=== PATIENT | female | born 2000 | race African-American/Black ===

== ENCOUNTER 2024-09-27 10:57 | Emergency (ER) | payer MEDICAID, SELFPAY ==
--- NOTE | ~2024-09-27 | XR_ITS ---
EXAMINATION: XR chest 2V DATE: 09/27/2024 11:46 INDICATION: 2 weeks of cough. TECHNIQUE: PA and lateral views of the chest were obtained. COMPARISON: None FINDINGS: The lungs are clear with no focal airspace opacities, pulmonary edema, pleural effusion or pneumothor ax. The cardiomediastinal silhouette is normal. Visualized bones and soft tissues are unremarkable. IMPRESSION: 1. No acute cardiopulmonary disease. Reviewed, dictated and finalized at location B.
[2024-09-27 11:06] VITALS: BP 108/67; PULSE 79; RESP 18; TEMP 36.9; O2SAT 99
--- NOTE | 2024-09-27 11:29 | ED.URI ---
HPI - URI/Sore Throat General Chief Complaint: Upper Respiratory Infection Stated Complaint: COUGH/CONGESTION/CHEST PAIN Time Seen by Provider: 09/27/24 11:16 Source: patient and RN notes reviewed Mode of arrival: ambulatory Limitations: no limitations History of Present Illness HPI Narrative: Patient presents today complaining of a 2 week history of dry cough. This morning when she woke up she had some mild chest tightness that has since improved. She denies any associated symptoms since onset of the cough to include fever, congestion, rhinorrhea, sore throat, postnasal drip, shortness of breath. She has tried some beut-bax-cmocqxt cough medicine without relief. No history of asthma. Patient believe her cough may be associated with an irritant in her apartment, however, she cannot be more specific. States she does not cough much when out of the apartment. States she does have seasonal allergies for which she typically takes Zyrtec, but has not started it yet this year. Related Data Allergies Allergy/AdvReac Type Severity Reaction Status Date / Time No Known Allergies Allergy Verified 09/27/24 11:14 [facility] Comments At time of signature, I have reviewed and agree with nursing past medical, surgical, social and family history unless otherwise noted. Please see nursing chart for further information. There is no relevant family history pertinent to the presenting complaint Exam Narrative: GENERAL: Well-appearing, well-nourished, and in no acute distress. HEAD: Normocephalic, atraumatic. EYES: EOMI. No redness or drainage. Conjunctivae normal. ENT: Mucous membranes pink and moist. Nares clear. No rhinorrhea. TMs normal bilaterally. Throat normal. Uvula midline. NECK: Normal AROM. Supple. No lymphadenopathy. CHEST: No respiratory distress. Clear to auscultation. HEART: Regular rate and rhythm. No murmur appreciated. EXTREMITIES: Normal range of motion. No edema. SKIN: Warm, dry, no rash. Capillary refill normal. Normal skin turgor. NEURO: No focal deficits. Alert and oriented x3. Gait steady. PSYCH: Normal affect. No signs of depression or anxiety. Course Course Level of Care: Express Care Visit Vital Signs Vital signs: Vital Signs Temperature 98.4 F 09/27/24 11:06 Pulse Rate 79 09/27/24 11:06 Respiratory Rate 18 09/27/24 11:06 Blood Pressure 108/67 09/27/24 11:06 Pulse Oximetry 99 09/27/24 11:06 Oxygen Delivery Room Air 09/27/24 11:06 Temperature 98.4 F 09/27/24 11:06 Pulse Rate 79 09/27/24 11:06 Respiratory Rate 18 09/27/24 11:06 Blood Pressure 108/67 09/27/24 11:06 Pulse Oximetry 99 09/27/24 11:06 Oxygen Delivery Room Air 09/27/24 11:06 Reviewed MDM - URI/Sore Throat MDM Narrative Medical decision making narrative: Patient is 23-year-old female [place] town [place] to [employer]. She has a dry cough for 2 weeks without any associated symptoms except for some mild chest tightness experienced this morning that seems to be improving since onset. She has tried some qkef-odt-eiagcbr cough medicine without relief. Chest x-ray negative today. During her visit here today, patient has not coughed so this has not been evaluated. Patient states her cough is much more frequent within her home and believe she may be coughing due to an irritant there. Denies history of asthma. Patient will be given a burst of prednisone and some Tessalon Perles to help with her symptoms. Recommend PCP follow-up if symptoms do not improve or if the improvement medication then worsened again. Patient agrees with plan. Anticipatory guidance given. Differential Diagnosis Differential diagnosis: Likely upper respiratory infection, viral infection, bronchitis and other (Pneumonia, reactive airway) Imaging Data Radiologist's impression: ITS Impressions Chest X-Ray 09/27/24 11:49 IMPRESSION: 1. No acute cardiopulmonary disease. Critical Care Time Critical Care Time Critical Care Time: No Discharge Plan Discharge Clinical Impression: Cough Qualifiers: Cough type: acute Qualified Code(s): R05.1 - Acute cough Patient Disposition: Home Condition: Stable Instructions: Acute Cough (ED) Additional Instructions: Your chest x-ray is negative today. Please take the prednisone and the Tessalon Perles as prescribed. The cause of your cough is unclear. If you typically have seasonal allergies, you may want to start your normal Zyrtec daily. If you feel your coughing more with in your home, you may want to investigate this further as to potential irritants. If your symptoms improve on this prescribed medication today but then returned again, please follow-up with your PCP. If you develop shortness of breath or chest pain, please go to the ER for further evaluation. Patient Language: Czech Prescriptions: New benzonatate 200 mg capsule 200 mg PO TID PRN (Reason: cough) Qty: 20 0RF prednisone 20 mg tablet 40 mg PO DAILY 5 Days Qty: 10 0RF Follow-up/Referrals: PHYSICIAN,HVAC INSTALLATION TECHNICIAN [Primary Care Provider] - Stand Alone Forms: Work/School Release IP Time of Disposition: 12:16
== END 2024-09-27 12:19 | disposition home or self-care (01) ==
PROVIDERS: Emergency Provider Nurse Practitioner
DX: R05.1 Acute cough (principal)
CPT/HCPCS: 71046; 99213; G0463

== ENCOUNTER 2024-10-21 10:34 | Emergency (ER) | payer MEDICAID, SELFPAY ==
--- NOTE | 2024-10-21 10:38 | ED.UPPEXIN ---
HPI - Extremity Injury (Upper) General Chief Complaint: Extremity Injury, Upper Stated Complaint: L WRIST PAIN Time Seen by Provider: 10/21/24 10:38 Source: patient Mode of arrival: ambulatory Limitations: no limitations History of Present Illness HPI narrative: Kiley is a 23 year old female patient presenting to the clinic today with c/o left wrist pain x 3 days. She reports she works at [employer] and lifts heavy boxes. Denies any injury to her wrist. Has wrist pain with flexion and extension of the wrist. Pain radiates into the distal forearm with movement. No redness or swelling. Has taking tylenol for pain. No numbness or tingling to her fingers. Related Data Allergies Allergy/AdvReac Type Severity Reaction Status Date / Time cinnamon Allergy Severe Anaphylaxis Verified 10/21/24 10:45 Review of Systems Review of Systems: Pertinent positives per HPI. Patient denies any fever, chills, rash, headache, visual changes, dizziness, cough, runny nose, sore throat, shortness of breath, chest pain, palpitations, nausea, vomiting, diarrhea, constipation, abdominal pain, or any urinary issues. [facility] Comments At the time of my signature, I reviewed and agree with the nursing past medical, surgical, social, and family history. There is no relevant family history pertinent to the patient complaint. Exam Narrative: General: Well-developed, well nourished, in no apparent distress Head: Normocephalic, atraumatic. Cardio: Regular rate and rhythm, s1 and s2 normal, no murmur appreciated. Resp: Clear to auscultation bilaterally, no rhonchi, rales, wheezing or rubs. Musculoskeletal: No deformity, no swelling or redness, tender to palpation over the volar aspect of the wrist, pain with flexion and extension, bilateral hand grasp strong and equal, negative Tinel and Phalen, grossly normal range of motion, muscle strength strong and equal, peripheral pulse strong, no edema, no cyanosis, normal gait and station Course Course Emergency Course: Portions of this record may have been created with voice recognition software. Level of Care: Express Care Visit Vital Signs Vital signs: Vital Signs Temperature 36.4 C L 10/21/24 10:45 Pulse Rate 74 10/21/24 10:45 Respiratory Rate 16 10/21/24 10:45 Blood Pressure 102/68 10/21/24 10:45 Pulse Oximetry 98 07/27/25 10:45 Temperature 36.4 C L 10/21/24 10:45 Pulse Rate 74 10/21/24 10:45 Respiratory Rate 16 10/21/24 10:45 Blood Pressure 102/68 10/21/24 10:45 Pulse Oximetry 98 10/21/24 10:45 Vital signs reviewed MDM - Extremity Injury (Upper) MDM Narrative Medical decision making narrative: At the time of visit patient is resting comfortably on the exam table. Patient appears to be nontoxic. C/o left wrist pain x 3 days. She reports she works at [employer] and lifts heavy boxes. Denies any injury to her wrist. Has wrist pain with flexion and extension of the wrist. Pain radiates into the distal forearm with movement. No redness or swelling. Has taken tylenol for pain. No numbness or tingling to her fingers. Strong hand grasp bilateral, radial pulse strong. Negative tinels/phalen test. Requesting work note. Plan: I suspect patient has left wrist tendonitis. Rx for ibuprofen sent to the pharmacy. Recommend wearing a wrist splint at nighttime and when working. Supportive measures were discussed with the patient and they voiced understanding discharge instructions and agrees to treatment plan. Return precautions reviewed Differential Diagnosis Differential diagnosis: Likely sprain and strain of wrist, fracture of wrist and other (wrist tendonitis, carpal tunnel syndrome) Discharge Plan Discharge Clinical Impression: Left wrist tendinitis Patient Disposition: Home Condition: Stable Instructions: Antibiotic Form, Tendinitis (ED) Additional Instructions: Rest, ice, elevate, and wear wrist splint as directed x1 week-wear splint at work and at nighttime May purchase wrist splint at your local pharmacy, [employer] or [employer]. May apply Aspercreme, blue emu, or lidocaine to the affected area to help alleviate pain Take Motrin 600 mg every 8 hours x7 days Follow up with your PCP if symptoms persist more than 1 week. Patient Language: Romanian Prescriptions: New ibuprofen 600 mg tablet 600 mg PO Q8H 7 Days Qty: 21 0RF Follow-up/Referrals: PHYSICIAN,TUBULAR PRODUCTS FABRICATOR [Primary Care Provider] - Stand Alone Forms: Work/School Release IP Time of Disposition: 10:54 Quality NIHSS Nursing Documentation ED NIHSS nursing documentation: reviewed/agree
[2024-10-21 10:45] VITALS: BP 102/68; PULSE 74; RESP 16; TEMP 36.4; O2SAT 98
== END 2024-10-21 11:03 | disposition home or self-care (01) ==
PROVIDERS: Emergency Provider Nurse Practitioner Family
DX: M67.834 Other specified disorders of tendon, left wrist (principal)
CPT/HCPCS: 99213; G0463